=== PATIENT | male | born 1970 | race Caucasian/White ===

== ENCOUNTER 2016-11-20 10:25 | Emergency (ER) | payer OTHER ==
--- NOTE | ~2016-11-20 | CR2 ---
[facility] A Service of [facility] RADIOLOGY TEXT RESULTS PATIENT: DI MEJIA LOCATION: SED : 74 UNIT #: [id number] AGE: [address]: Everardo Chávez MD SEX: M ORDER DR: [id number] [address] [address] [id number] E MR#: [id number] Acc #: [id number] NAME: DI MEJIA : 1970 SEX: M STUDY DATE/TIME: 11/20/2016 10:28 UNIT: SED ROOM: STUDY DESCRIPTION: CR Abdomen Acute Series Attending Physician: Everardo Chávez M.D. Ordering Physician: Everardo Chávez M.D. Primary Care Physician: Luis Alfredo Arnold M.D. MEDICAL IMAGING REPORT This report is preliminary unless electronic signature is present. EXAM Acute abdomen series. DATE OF EXAM 11/20/2016 HISTORY 46-year-old male with abdominal pain for several years. COMPARISON STUDIES CT abdomen and pelvis, 05/31/2015. FINDINGS Frontal chest and 3 flat and upright views of the abdomen were performed. 4 total images. The lungs and pleural spaces are clear. No pneumothorax. Heart size is normal. Slight increase in prominence of mediastinum compared with prior chest CT from 01/11/2013. This could be projectional and related to poor inspiration, but underlying aortic ectasia or aneurysm is not excluded. This can be further evaluated on a nonemergent basis. The bowel gas pattern is nonobstructive. No free intraperitoneal air. Moderate stool burden. Postsurgical changes of the lumbosacral spine. IMPRESSION 1. No acute abdominal findings. Moderate stool burden. 2. Slight increase in prominence of the mediastinum compare with prior chest CT from 01/11/2013. This may be related to poor inspiration and projectional artifact. However, underlying aortic ectasia or aneurysm is not completely excluded. If indicated, this can be further characterized with nonemergent contrast-enhanced chest CT. Dictated by... [facility] A Service of [facility] RADIOLOGY TEXT RESULTS PATIENT: DI MEJIA LOCATION: [facility] : 74 UNIT #: [id number] AGE: [address]: Everardo Chávez MD SEX: M ORDER DR: Solomon Dowell M.D. THIS IS AN ELECTRONICALLY VERIFIED REPORT Solomon Dowlel M.D. at 11/21/2016 8:11 AM Neymar TD: 11/20/2016 15:15 JOB #: [id number] MEDICAL IMAGING REPORT Page 1 of 1
[~2016-11-20 10:25] MED LIST: ABILIFY PO; ACYCLOVIR PO; BACITRACIN15 GM OINT EXT; BACLOFEN10 MG PO; BACTRIM DS TABL1 TA1 PO; BACTRIM DS TABL1 TAB PO; BENTYL10 MG PO; CONZIP100 MG; FLEXERIL PO; FLEXERIL10 MG PO; FLONASE16 GM; HCTZ PO; HYDROCODON-ACE1 EAC7 PO; IBUPROFEN800 MG PO; LISINOPRIL PO; MOBIC PO; MOTRIN600 M2 PO; NEURONTIN PO; NEURONTIN300 MG PO; NEURONTIN600 MG; NEURONTIN600 MG PO; NO MEDICATIONS; NORVASC PO; PAXIL; PAXIL PO; PREDNISONE PO; ROBAXIN PO; SUDAFED PO; TRAMADOL HCL50 M1 PO; ULTRAM PO; VEETIDS 500500 M1 PO; VOLTAREN75 MG PO; ZOFRANODT PO; ZOVIRAX PO
[2016-11-20 10:57] LABS: BASOPHIL# 0.1 X10e3 (0-0.3); EOSINOPHIL# 0.5 X10e3 (0-0.7); HEMATOCRIT 43.9 % (38.0-50.0); HEMOGLOBIN 14.8 gm/dL (13.0-16.0); LYMPHOCYTE# 3.1 X10e3 (1.0-3.5); MEAN CELL VOLUME 87.6 FL (83-96); MEAN CORPUSCULAR HEMOGLOBIN 29.6 PG (28-34); MEAN CORPUSCULAR HGB CONC 33.7 g/dL (30-36); MEAN PLATELET VOLUME 7.3 FL (6.5-11.5); MONOCYTE# 0.6 X10e3 (0-1.0); NEUTROPHIL# 4.6 X10e3 (1.5-7.1); PLATELET COUNT 259 X10e3 (140-420); RED BLOOD COUNT 5.01 X10e (3.90-5.60); WHITE BLOOD COUNT 8.9 X10e3 (4.0-10.5)
[2016-11-20 11:01] LABS: DIFF IND NO
[2016-11-20 11:03] LABS: URINE APPEARANCE CLEAR; URINE BILIRUBIN NEG (NEG); URINE BLOOD NEG (NEG); URINE COLOR YELLOW; URINE GLUCOSE NEG (NORM); URINE KETONE NEG (NEG); URINE LEUKOCYTE ESTERASE NEG (NEG); URINE NITRATE NEG (NEG); URINE PH 5.5 (5-8); URINE PROTEIN NEG (NEG); URINE UROBILINOGEN 0.2 MG/DL (NORM)
[2016-11-20 11:04] LABS: MICRO INDICATED? NO; URINE SOURCE CLEAN CATCH
[2016-11-20 11:07] LABS: ALBUMIN SERUM 4.2 g/dL (3.5-5.0); BILIRUBIN, DIRECT 0.1 mg/dL (0.0-0.2); BILIRUBIN,INDIRECT 0.3 mg/dL (0.0-0.9); BILIRUBIN,TOTAL 0.4 mg/dL (0.2-2.0); BUN/CREATININE RATIO 15.55; CALCIUM SERUM 8.8 mg/dL (8.4-10.2); CREATININE SERUM 0.9 mg/dL (0.6-1.4); GLOM FILT RATE Estimated 103.5 mL/min (>60); PROTEIN TOTAL SERUM 7.2 g/dL (6.0-8.3)
== END 2016-11-20 11:28 | disposition home or self-care (01) ==
LOC: SED 10:25
PROVIDERS: Emergency Medicine
DX: R10.9 Unspecified abdominal pain (principal); F17.200 Nicotine dependence, unspecified, uncomplicated; G89.29 Other chronic pain
CPT/HCPCS: 36415; 74022; 80048; 80076; 81003; 83690; 85025; 96372; 99284; J0500

== ENCOUNTER 2016-12-16 21:25 | Emergency (ER) | payer OTHER ==
--- NOTE | ~2016-12-16 | TH ---
Unit #: [id number] #: [id number] Patient: DI MEJIA [id number] [address] [address] [id number] I MR#: [id number] NAME: DI MEJIA : 1970 SEX: M STUDY DATE/TIME: 12/17/2016 UNIT: CEDOF ROOM: 70933 STUDY DESCRIPTION: Attending Physician: Thomas Park M.D. Primary Care Physician: Luis Alfredo Arnold M.D. CARDIOLOGY REPORT EXAM Rest images only. PROCEDURE Twelve millicuries of Cardiolite was injected. Images were obtained in horizontal and vertical short axis and long axis views. The rest images show normal perfusion. The heart appears dilated. Patient refused to undergo the stress portion of the test. CONCLUSION 1. Incomplete test since patient refused the stress portion of the test. 2. The rest images show normal perfusion. 3. The rest images show a dilated heart. 4. Incomplete test. Dictated by... Rose Reid TD: 12/17/2016 15:01 JOB #: [id number] CARDIOLOGY REPORT Page 1 of 1 X Cesia Noriega MD <ELECTRONICALLY SIGNED> 02/05/17 1429 CARDIOLOGY REPORT
--- NOTE | ~2016-12-16 | CO ---
Unit #: [id number] #: [id number] Patient: DI KAYE [id number] [address] [place], [place] [address] [id number] I MR#: [id number] NAME: DI KAYE ROOM: [id number] Age: 46 Sex: M Admission Date: 12/17/2016 : 1970 Attending Physician: Thomas Park M.D. Primary Care Physician: Luis Alfredo Arnold M.D. Consultation Date: 12/17/2016 CONSULTATION REPORT REASON FOR CONSULTATION Abnormal chest x-ray, reported that he has an abdominal aneurysm. HISTORY OF PRESENT ILLNESS This is a 46-year-old white male with a history of having a stress test about 10 years ago that showed some fixed inferior wall perfusion abnormality, possibly tissue attenuation. No ischemia. Ejection fraction was 46%. Chronic back pain, has had back surgery, bipolar disorder, nicotine abuse. He reports he is a reformed polysubstance abuse, quit about 10 years ago. He came to the emergency room after his family physician told him to come to the hospital for a MRI of his chest and abdomen to evaluate for an aneurysm. According to patient, he had been complaining to his family physician about some abdominal pain and the doctor ordered a CT of his abdomen and pelvis. That was done on November 20, 2016. He got a call from the doctor's office in the last day or so reporting that it looks like he has an aneurysm and he needs to have further studies, to go to the hospital and he would need a MRI. Patient denies any abdominal pain today. He denies any chest pain, pain in his neck, bilateral jaws, shoulders, arms, or elbow. He denies any palpitations. No dizziness, presyncope, or syncope. Denies any recent cough, fever, or chills. Next, looking at the CT of the abdomen and pelvis, the report reveals no acute abdominal findings. There is a slight increase in prominence of the mediastinum compared to a chest CT done in 2012 and also some underlying aortic ectasia or aneurysm is not completely excluded. Cardiology was consulted to assist with evaluation and management. PAST MEDICAL HISTORY 1. Denies hypertension. 2. Denies hyperlipidemia. 3. Denies diabetes mellitus type 2. 4. In 2006, had an exercise Cardiolite stress test that showed a moderate fixed inferior wall perfusion abnormality which likely related to diaphragmatic attenuation, although could not rule out completely a previous myocardial infarction. However, no ischemia and with ejection fraction found to be 46%. 5. Patient has chronic back pain. 6. Bipolar disorder. 7. Nicotine abuse. 8. Reformed polysubstance abuse, quit about 10 years ago. 9. He had a history of using notably methamphetamines. PAST SURGICAL HISTORY 1. Septoplasty for deviated septum. Unit #: [id number] #: [id number] Patient: DI KAYE 2. Inguinal hernia repair. 3. Back surgery. HOME MEDICATIONS 1. Neurontin 800 mg p.o. three times daily. 2. Ultram 50 mg p.o. every four hours p.r.n. for pain. ALLERGIES No known drug allergies. SOCIAL HISTORY The patient lives with his family. He denies any alcohol and says he has been clean for several years off polysubstance abuse, especially methamphetamines. He smokes about one pack of cigarettes a day. He has been smoking most of his adult life. FAMILY HISTORY His father had prostate cancer, hypertension. REVIEW OF SYSTEMS See details in HPI. PHYSICAL EXAMINATION GENERAL: On exam, Mr. Kaye is a 46-year-old white male in no acute respiratory distress. He is awake, alert, and oriented. VITAL SIGNS: Blood pressure is 137/96, heart rate is 84, respirations 16, temperature 97.7, O2 saturations 99% on room air. HEART: S1, S2. Regular rate and rhythm. No clicks, murmurs, or rubs. LUNGS: Diminished, otherwise clear. ABDOMEN: Soft, nontender. No bruit or thrill in abdominal sounds. EXTREMITIES: Pedal pulses are palpable. No pedal edema. DIAGNOSTIC STUDIES LABORATORY: Glucose 78, BUN 12, creatinine 1, eGFR 91.1, sodium 137, potassium 3.8, chloride 106, CO2 of 26. Calcium 8.7. Total protein 7.2, albumin 4.2, bilirubin total 0.8, AST 16, ALT 15, alkaline phosphatase is 60. WBC 9.9, hemoglobin 13.5, hematocrit 40.4, and platelets 262,000. Initial cardiac enzymes: CK-MB is less than 1, troponin less than 0.05. CK-MB is less than 1, troponin less than 0.05. INR is 1. IMAGING: CT of the chest with PE protocol showed nothing acute. No evidence for pulmonary embolism. No acute findings in the upper abdomen. Lungs are clear. CARDIOVASCULAR: EKG shows normal sinus rhythm with ventricular rate 81 beats per minute, left ventricular hypertrophy, low voltage in inferior leads. IMPRESSION 1. Abnormal CT of the abdomen. 2. History of abdominal pain: CT of abdomen on November 20, 2016 showed some increase in prominence of the mediastinum and could not exclude an underlying aortic ectasis or aneurysm. 3. History of ejection fraction of 46% on stress test in 2006. 4. Chronic back pain. 5. Nicotine abuse. 6. Bipolar disorder. 7. Reformed polysubstance abuse. Unit #: [id number] #: [id number] Patient: DI KAYE Cardiology was consulted to assist with evaluation and management. Patient's cardiac enzymes remain negative. His EKG does not show anything acute. The patient had been ordered a stress test. He had the resting portion done but after he found out that the CT scan of the chest was negative for any aneurysm or pulmonary embolism, he wanted to go home. He said he did not feel like the test was necessary. He had no signs or symptoms of unstable angina. Since his ejection fraction was found to be 46% back in 2006 and there has not been any repeat echo, recommended to the patient to have a 2D echo at least to evaluate his left ventricular function and valves. Again, the patient refused. He wanted to go home. He said he would do it later as a followup. Encouraged patient to quit smoking. Smoking cessation information provided to patient. On exam, there are no signs or symptoms of acute congestive heart failure. Further recommendations pending per Dr. Noriega. Thank you very much for allowing us to assist in the care. Dictated by... Maeve Herr M.D. CEC/ch TD: 12/18/2016 10:28 JOB #: [id number] CONSULTATION REPORT Page 1 of 1 X Jenae Kemp APRN CONSULTATION REPORT
--- NOTE | ~2016-12-16 | EKG ---
PATIENT: DI MEJIA UNIT #: [id number] Ventricular Rate: 81 BPM Atrial Rate: 81 BPM P-R Interval: 182 ms QRS Duration: 100 ms Q-T Interval: 356 ms QTC Calculation(Bezet): 413 ms P [place]: 75 degrees Calculated R [place]: 12 degrees Calculated T [place]: 61 degrees Diagnosis Line: Normal sinus rhythm Diagnosis Line: Normal ECG Diagnosis Line: Diagnosis Line: Confirmed by RIO BARLOW MD ([id number]) on Diagnosis Line: 12/18/2016 1:19:25 PM INTERPRETING MD: JESSICA
--- NOTE | ~2016-12-16 | CT16 ---
[facility] A Service of [facility] RADIOLOGY TEXT RESULTS PATIENT: DI MEJIA LOCATION: CEDOF : 74 UNIT #: [id number] AGE: [address]: Thomas Park MD SEX: M ORDER DR: [id number] [facility] [address] [place], [place] [address] [id number] I MR#: [id number] Acc #: [id number] NAME: DI MEJIA : 1970 SEX: M STUDY DATE/TIME: 12/17/2016 0:49 UNIT: CEDOF ROOM: 14328 STUDY DESCRIPTION: CT Angio Chest for PE Attending Physician: Thomas Park M.D. Ordering Physician: Maldonado Glynn D.O. Primary Care Physician: Luis Alfredo Arnold M.D. MEDICAL IMAGING REPORT This report is preliminary unless electronic signature is present EXAM CTA chest PE protocol INDICATION Mid sternal chest pain for the past few months. PROCEDURE Contrast-enhanced CTA of the chest attention on opacification of the pulmonary arteries. Coronal 3D MIP sagittal reformatted images reconstructed and submitted. This CT exam was performed with one or more of the following radiation dose reduction techniques: Automatic exposure control, adjustment of mA and/or kV according to patient size, and iterative reconstruction. COMPARISON None. FINDINGS No evidence for pulmonary embolus. No evidence for acute aortic injury. No adenopathy. No acute findings in the included upper abdomen. The lungs are clear. No aggressive-appearing bone lesion. IMPRESSION No acute findings. No evidence for pulmonary embolus. Dictated by... Binu Pierre M.D. THIS IS AN ELECTRONICALLY VERIFIED REPORT Binu Pierre M.D. at 12/20/2016 7:19 AM LATONIAD/jacob [facility] A Service [facility] RADIOLOGY TEXT RESULTS PATIENT: DI MEJIA LOCATION: CED[facility] : 74 UNIT #: [id number] AGE: [address]: Thomas Park MD SEX: M ORDER DR: TD: 12/17/2016 09:24 JOB #: [id number] MEDICAL IMAGING REPORT Page 1 of 1 COPY
[2016-12-16 23:26] LABS: BASOPHIL# 0.1 X10e3 (0-0.3); BASOPHIL% 0.9 % (0-2.5); DIFF IND NO; EOSINOPHIL# 0.4 X10e3 (0-0.7); EOSINOPHIL% 4.2 % (0.0-7.0); HEMATOCRIT 40.4 % (38.0-50.0); HEMOGLOBIN 13.5 gm/dL (13.0-16.0); LYMPHOCYTE# 3.3 X10e3 (1.0-3.5); LYMPHOCYTE% 33.2 % (17.0-45.0); MEAN CELL VOLUME 88.5 FL (83-96); MEAN CORPUSCULAR HEMOGLOBIN 29.6 PG (28-34); MEAN CORPUSCULAR HGB CONC 33.4 g/dL (30-36); MEAN PLATELET VOLUME 7.7 FL (6.5-11.5); MONOCYTE# 0.7 X10e3 (0-1.0); MONOCYTE% 7.6 % (3.0-12.0); NEUTROPHIL# 5.3 X10e3 (1.5-7.1); NEUTROPHIL% 54.1 % (40-75); PLATELET COUNT 262 X10e3 (140-420); RED BLOOD COUNT 4.56 X10e (3.90-5.60); RED CELL DISTRIBUTION WIDTH 14.1 % (11.0-15.5); WHITE BLOOD COUNT 9.9 X10e3 (4.0-10.5)
[2016-12-16 23:33] LABS: POC - CKMB <1.0 ng/mL (0.0-7.9); POC - TROPONIN <0.05 ng/mL (<=0.05)
[2016-12-16 23:42] LABS: PARTIAL THROMBOPLASTIN TIME 26.7 SECONDS (23.5-31.3); PROTHROMBIN TIME (PATIENT) 10.2 SECONDS (9.6-11.5)
[2016-12-16 23:50] LABS: ALBUMIN SERUM 4.2 g/dL (3.5-5.0); BILIRUBIN, DIRECT 0.1 mg/dL (0.0-0.2); BILIRUBIN,INDIRECT 0.7 mg/dL (0.0-0.9); BILIRUBIN,TOTAL 0.8 mg/dL (0.2-2.0); CALCIUM SERUM 8.7 mg/dL (8.4-10.2); GLOM FILT RATE Estimated 91.1 mL/min (>60); POTASSIUM 3.8 mmol/L (3.5-5.1); PROTEIN TOTAL SERUM 7.2 g/dL (6.0-8.3)
[2016-12-17] MEDS ORDERED: NEURONTIN800 MG PO (02:07)
[2016-12-17] MEDS ORDERED: ULTRAM PO (02:07)
[2016-12-17 02:19] LABS: POC - CKMB <1.0 ng/mL (0.0-7.9); POC - TROPONIN <0.05 ng/mL (<=0.05)
== END 2016-12-17 10:41 | disposition left against medical advice (07) ==
LOC: CED 21:25 → CEDOF 12-17 05:19 → CED 12-17 05:19 → CEDOF 12-17 05:19 → CED 12-17 10:41
PROVIDERS: Emergency Medicine
DX: R07.9 Chest pain, unspecified (principal); F17.210 Nicotine dependence, cigarettes, uncomplicated; Z79.899 Other long term (current) drug therapy
CPT/HCPCS: 36415; 71275; 78451; 80048; 80076; 82550; 82553; 84484; 85025; 85610; 85730; 93005; 96360; 99285; A9500; Q9967

== ENCOUNTER 2016-12-29 07:40 | Emergency (ER) | payer OTHER ==
[~2016-12-29 07:40] MED LIST changes: +NEURONTIN800 MG PO
== END 2016-12-29 08:25 | disposition home or self-care (01) ==
LOC: SED 07:40
DX: H10.32 Unspecified acute conjunctivitis, left eye (principal); F17.200 Nicotine dependence, unspecified, uncomplicated; Z79.899 Other long term (current) drug therapy
CPT/HCPCS: 87651; 99283

== ENCOUNTER 2017-03-27 01:41 | Emergency (ER) | payer OTHER ==
[~2017-03-27] VITALS: Ht 182.9 cm; Wt 99.8 kg
--- NOTE | ~2017-03-27 | EKG ---
PATIENT: DI MEJIA UNIT #: [id number] Ventricular Rate: 93 BPM Atrial Rate: 93 BPM P-R Interval: 174 ms QRS Duration: 82 ms Q-T Interval: 334 ms QTC Calculation(Bezet): 415 ms P [place]: 71 degrees Calculated R [place]: 12 degrees Calculated T [place]: 60 degrees Diagnosis Line: Normal sinus rhythm Diagnosis Line: Normal ECG Diagnosis Line: When compared with ECG of 16-DEC-2016 21:26, Diagnosis Line: No significant change was found Diagnosis Line: Confirmed by STELLA JEFFERY MD ([id number]) on 03/30/2017 Diagnosis Line: 7:31:11 PM INTERPRETING MD: LATIA CARPENTER
[2017-03-27 02:35] LABS: URINE SOURCE CLEAN CATCH
[2017-03-27 02:39] LABS: POC - CKMB <1.0 ng/mL (0.0-7.9); POC - MYOGLOBIN 41.5 ng/mL (0.0-169.0); POC - TROPONIN <0.05 ng/mL (<=0.05)
[2017-03-27 02:39] LABS: URINE APPEARANCE CLEAR; URINE BILIRUBIN NEG (NEG); URINE BLOOD NEG (NEG); URINE COLOR YELLOW; URINE GLUCOSE NEG (NORM); URINE KETONE NEG (NEG); URINE LEUKOCYTE ESTERASE NEG (NEG); URINE NITRATE NEG (NEG); URINE PH 6.5 (5-8); URINE PROTEIN NEG (NEG); URINE SPECIFIC GRAVITY 1.025 (1.003-1.035)
[2017-03-27 02:43] LABS: BASOPHIL# 0.1 X10e3 (0-0.3); BASOPHIL% 0.9 % (0-2.5); EOSINOPHIL# 0.7 X10e3 (0-0.7); EOSINOPHIL% 5.6 % (0.0-7.0); HEMATOCRIT 45.6 % (38.0-50.0); HEMOGLOBIN 15.4 gm/dL (13.0-16.0); LYMPHOCYTE# 2.9 X10e3 (1.0-3.5); LYMPHOCYTE% 23.9 % (17.0-45.0); MEAN CELL VOLUME 89.2 FL (83-96); MEAN CORPUSCULAR HEMOGLOBIN 30.1 PG (28-34); MEAN CORPUSCULAR HGB CONC 33.8 g/dL (30-36); MEAN PLATELET VOLUME 8.4 FL (6.5-11.5); MONOCYTE# 0.9 X10e3 (0-1.0); MONOCYTE% 7.6 % (3.0-12.0); NEUTROPHIL# 7.6 X10e3 (1.5-7.1); PLATELET COUNT 272 X10e3 (140-420); RED BLOOD COUNT 5.11 X10e (3.90-5.60); RED CELL DISTRIBUTION WIDTH 14.6 % (11.0-15.5); WHITE BLOOD COUNT 12.3 X10e3 (4.0-10.5)
[2017-03-27 02:44] LABS: MICRO INDICATED? NO
[2017-03-27 02:44] LABS: DIFF IND NO
[2017-03-27 03:00] LABS: CALCIUM SERUM 8.7 mg/dL (8.4-10.2); GLOM FILT RATE Estimated 90.5 mL/min (>60); POTASSIUM 4.3 mmol/L (3.5-5.1)
== END 2017-03-27 03:20 | disposition home or self-care (01) ==
LOC: SED 01:41
PROVIDERS: Emergency Medicine
DX: N41.0 Acute prostatitis (principal); F31.9 Bipolar disorder, unspecified; F17.200 Nicotine dependence, unspecified, uncomplicated; Z79.899 Other long term (current) drug therapy
CPT/HCPCS: 80048; 81003; 82553; 83874; 84484; 85025; 93005; 99283